=== PATIENT | male | born 1975 | race Caucasian/White ===

== ENCOUNTER 2022-03-02 13:22 | Emergency (ER) | payer OTHER, SELFPAY ==
[2022-03-02 13:37] VITALS: BP 135/91; PULSE 77; RESP 16; TEMP 35.9; O2SAT 98
--- NOTE | 2022-03-02 13:47 | ED.SKABFB ---
HPI - Skin/Abscess/Foreign Bdy General Chief complaint: Skin/Abscess/Foreign Body Stated complaint: Left Hand Pain Time Seen by Provider: 03/02/22 13:40 Source: patient Mode of arrival: ambulatory Limitations: no limitations History of Present Illness HPI narrative: Mr. Copeland is a 46-year-old male patient presenting to clinic today with complaints of left 4th finger infection. He reports that he had a splinter in his finger ring finger approximately 5-6 days ago and removed it. He reports over the last 2 days his fingers become more red and swollen. He is having difficulty with flexion and extension of his finger due to swelling. He denies any fever or chills. He is concerned that there may be a part of the foreign body still stuck in his finger Review of Systems Review of Systems: Pertinent positives per HPI. Patient denies any fever, chills, rash, headache, visual changes, dizziness, cough, runny nose, sore throat, shortness of breath, chest pain, palpitations, nausea, vomiting, diarrhea, constipation, abdominal pain, or any urinary issues. PMFSH Comments At the time of my signature, I reviewed and agree with the nursing past medical, surgical, social, and family history. There is no relevant family history pertinent to the patient complaint. Exam Narrative: General: Well-developed, well nourished, in no apparent distress Head: Normocephalic, atraumatic. Cardio: Regular rate and rhythm, s1 and s2 normal, no murmur appreciated. Resp: Clear to auscultation bilaterally, no rhonchi, rales, wheezing or rubs. Musculoskeletal: No deformity, redness and swelling over the proximal 4th finger left hand, mild tender to palpation, limited range of motion due to swelling, muscle strength strong and equal, peripheral pulse strong, no edema, no cyanosis, normal gait and station Course Course Emergency Course: Portions of this record may have been created with voice recognition software. Level of Care: Express Care Visit Vital Signs Vital signs: Vital Signs Temperature 35.9 C L 03/02/22 13:37 Pulse Rate 77 03/02/22 13:37 Respiratory Rate 16 03/02/22 13:37 Blood Pressure 135/91 H 03/02/22 13:37 Pulse Oximetry 98 03/02/22 13:37 Oxygen Delivery Room Air 03/02/22 13:37 Temperature 35.9 C L 03/02/22 13:37 Pulse Rate 77 03/02/22 13:37 Respiratory Rate 16 03/02/22 13:37 Blood Pressure 135/91 H 03/02/22 13:37 Pulse Oximetry 98 03/02/22 13:37 Oxygen Delivery Room Air 03/02/22 13:37 Vital signs reviewed Discharge Plan Discharge Clinical Impression: Finger infection Patient Disposition: Home, Self-Care Condition: Stable Instructions: Antibiotic Form, Puncture Wound (ED), Wound Infection (DC) Additional Instructions: Tdap injection was given in the clinic today. NO visible FB seen in the finger Take Bactrim ds 1 tab twice a day for 10 days May try soaking finger in Epson salt to see if this helps with the swelling and inflammation Follow-up with your PCP in 3-5 days if symptoms persist or sooner if they worsen Prescriptions: New sulfamethoxazole-trimethoprim [Bactrim DS] 800-160 mg tablet 1 tablet PO Q12H 10 Days Qty: 20 0RF Follow-up/Referrals: Madelin,Rafal Lopez MD [Primary Care Provider] - Time of Disposition: 13:51 Quality NIHSS Nursing Documentation ED NIHSS nursing documentation: reviewed/agree
[2022-03-02] MEDS: TETANUS,DIPHTHERIA,AC PERTUSSIS ADULT (0.5 ML) BOOSTRIX IM (13:54)
== END 2022-03-02 14:00 | disposition home or self-care (01) ==
PROVIDERS: Emergency Provider Nurse Practitioner Family; PCP Internal Medicine
DX: L08.9 Local infection of the skin and subcutaneous tissue, unspecified (principal); Z23 Encounter for immunization
CPT/HCPCS: 90471; 90715; 99213; G0463

== ENCOUNTER 2022-03-14 10:09 | Emergency (ER) | payer OTHER, SELFPAY ==
[2022-03-14 10:17] VITALS: BP 141/96; PULSE 77; RESP 16; TEMP 37.1; O2SAT 100
--- NOTE | 2022-03-14 10:29 | ED.SKABFB ---
HPI - Skin/Abscess/Foreign Bdy General Chief complaint: Skin/Abscess/Foreign Body Stated complaint: Rash on trunk and arms Time Seen by Provider: 03/14/22 10:29 Source: patient Mode of arrival: ambulatory Limitations: no limitations History of Present Illness HPI narrative: 46-year-old male presenting for complaint of rash to trunk and arms, onset today. Endorses the rash is itchy. He denies pain. He denies lip, tongue, throat swelling, itching, shortness of breath or wheezing. He denies changes to lotion, soap, detergent etc.. He did complete a 10-day course of Bactrim yesterday for finger infection which has improved. Denies known allergies. Related Data Allergies Allergy/AdvReac Type Severity Reaction Status Date / Time sulfamethoxazole Allergy Rash Verified 03/14/22 10:27 [From Bactrim] trimethoprim [From Bactrim] Allergy Rash Verified 03/14/22 10:27 Review of Systems Review of Systems: CONSTITUTIONAL: Denies body aches, fever, chills, or sweats. EYES: Denies visual changes, redness, or discharge. ENT: Denies rhinorrhea, congestion CARDIOVASCULAR: Denies chest pain, palpitations, or edema. RESPIRATORY: Denies wheezing or dyspnea. GASTROINTESTINAL: Denies abdominal pain, nausea, vomiting, or diarrhea. SKIN: reports itchy rash to torso MUSCULOSKELETAL: Denies back pain, joint pain, or myalgia. NEUROLOGIC: Denies headache, numbness, tingling, or weakness. PMFSH Comments At time of signature, I have reviewed and agree with nursing past medical, surgical, social and family history unless otherwise noted. Please see nursing chart for further information. There is no relevant family history pertinent to the presenting complaint Exam Narrative: GENERAL: Well-appearing HEAD: Normocephalic, atraumatic. EYES: conjunctivae clear, and EOMI. ENT: Mucous membranes moist. Oropharynx without edema, erythema or lesions. NECK: Supple. No lymphadenopathy CHEST: Clear to auscultation. HEART: Regular rate and rhythm. SKIN: Warm, dry. Diffuse urticaria to trunk from neck to bilateral groin and bilateral elbows NEURO: Alert and oriented x3. Course Course Emergency Course: Patient is aware of diagnosis, understands and agrees to treatment plan. Anticipatory guidance given. Patient agrees to follow-up as directed and is aware of reasons to seek care at the emergency department. Portions of this record may have been created with voice recognition software Level of Care: Express Care Visit Vital Signs Vital signs: Vital Signs Temperature 98.8 F 03/14/22 10:17 Pulse Rate 77 03/14/22 10:17 Respiratory Rate 16 03/14/22 10:17 Blood Pressure 141/96 H 03/14/22 10:17 Pulse Oximetry 100 03/14/22 10:17 Oxygen Delivery Room Air 03/14/22 10:17 Temperature 98.8 F 03/14/22 10:17 Pulse Rate 77 03/14/22 10:17 Respiratory Rate 16 03/14/22 10:17 Blood Pressure 141/96 H 03/14/22 10:17 Pulse Oximetry 100 03/14/22 10:17 Oxygen Delivery Room Air 03/14/22 10:17 Reviewed MDM - Skin/Abscess/Foreign Bdy MDM Narrative Medical decision making narrative: Patient with urticarial rash to trunk after completing 10 days of Bactrim. Advised to avoid this abx. Rx steroid. Advised supportive measures and signs/symptoms to go to the ER. Pt is appropriate for outpt treatment and f/u. Instructed patient to go to nearest ER immediately for any worsening symptoms including but not limited to: fever, spreading rash, pain, sore throat, headache, dizziness, chest pain, trouble breathing, or any symptoms concerning to the patient. Differential Diagnosis Differential diagnosis: Likely abscess of skin or subcutaneous tissue, urticaria, herpes zoster, cellulitis and contact dermatitis Discharge Plan Discharge Clinical Impression: Urticaria Patient Disposition: Home, Self-Care Condition: Stable Instructions: Urticaria (ED) Additional Instructions: Wash with gentle soap and water. Use skin cr
== END 2022-03-14 10:45 | disposition home or self-care (01) ==
PROVIDERS: Emergency Provider Nurse Practitioner Family
DX: L50.9 Urticaria, unspecified (principal)
CPT/HCPCS: 99213; G0463